=== PATIENT | female | born 1960 | race Caucasian/White ===

== ENCOUNTER 2024-08-26 13:01 | Outpatient (CLI) | payer MEDICARE, OTHER | END 2024-08-26 23:59 | disposition home or self-care (01) | LOC: RAD 13:01 | PROVIDERS: ATTEND Nurse Practitioner Acute Care | DX: R13.14 Dysphagia, pharyngoesophageal phase (principal); Z98.1 Arthrodesis status; Z79.1 Long term (current) use of non-steroidal anti-inflammatories (NSAID); Z79.899 Other long term (current) drug therapy | CPT/HCPCS: 74230 ==